=== PATIENT | female | born 1990 | race Caucasian/White ===

== ENCOUNTER → 2016-09-05 | Outpatient (CLI) | payer BC ==
--- NOTE | 2016-09-05 14:49 | US ---
HISTORY: Polycystic ovarian syndrome Study: Transvaginal pelvic sonography Comparison: None Technique: Multiple grayscale sonographic images were obtained. Findings: The uterus measure 5.7 by 3.1 by 4.1 centimeters. Endometrial thickness was normal at 6.5 millimeter s. The right ovary measured 2.3 x 1.8 x 2.7 centimeters. The left ovary measured 2.9 x 1.8 x 2.3 elba timeters. There are multiple sub centimeter cysts in the ovaries bilaterally. No adnexal masses are identified. No free fluid is noted in the cul de sac. IMPRESSION: Multiple sub centimeter simple cysts in each ovary Reported By:
== END ==
LOC: RAD 11:55
PROVIDERS: ATTEND Physician Assistant Medical
DX: E28.2 Polycystic ovarian syndrome (principal)
CPT/HCPCS: 76830